=== PATIENT | male | born 1980 | race Caucasian/White ===

== ENCOUNTER 2022-04-13 13:29 | Outpatient (CLI) | payer BC, SELFPAY ==
[2022-04-13 22:01] LABS: Albumin* 4.9 g/dL (3.3-5.0); Sodium* 137 mmol/L (135-149)
[2022-04-13 22:02] LABS: Potassium* 4.5 mmol/L (3.6-5.1)
[2022-04-13 22:04] LABS: Cholesterol* 206 mg/dL (90-199); Estimated Glomerular Filt Rate 96 ml/min
[2022-04-13 22:05] LABS: Alanine Aminotransferase* 37 U/L (4-50); Alkaline Phosphatase* 71 U/L (40-150); Aspartate Amino Transferase* 35 U/L (12-35); Bilirubin Total* 0.6 mg/dL (0.1-1.5); Blood Urea Nitrogen* 15 mg/dL (5-24); Calcium* 9.9 mg/dL (8.4-10.6); Carbon Dioxide* 28 mmol/L (20-32); Glucose* 94 mg/dL (60-115); HDL Cholesterol* 53 mg/dL (>=40); LDL Cholesterol Calculated 115 mg/dL (<100); Triglycerides* 192 mg/dL (40-149)
[2022-04-13 22:10] LABS: C Reactive Protein* < 0.5 mg/dL (0.5-1.0)
[2022-04-13 22:18] LABS: Chloride* 100 mmol/L (96-114)
[2022-04-15 18:15] LABS: Rheumatoid Factor <10 IU/mL (0-14)
[2022-04-15 21:57] LABS: Anti-Nuclear Ab(ANA)IgG ELISA None Detected (None Detected)
[2022-04-16 08:54] LABS: HLA-B27 Negative (Negative)
== END 2022-04-13 13:30 | disposition home or self-care (01) ==
PROVIDERS: PCP Family Medicine; Visit Provider Family Medicine
DX: Z00.00 Encounter for general adult medical examination without abnormal findings (principal); M35.3 Polymyalgia rheumatica; R21 Rash and other nonspecific skin eruption; Z13.1 Encounter for screening for diabetes mellitus; Z13.6 Encounter for screening for cardiovascular disorders
CPT/HCPCS: 80053; 80061; 86039; 86140; 86200; 86431; 86812

== ENCOUNTER 2023-04-13 07:57 | Outpatient (CLI) | payer BC, SELFPAY | END 2023-04-13 07:58 | disposition home or self-care (01) | PROVIDERS: PCP Family Medicine; Visit Provider Physician Assistant Medical | DX: Z00.00 Encounter for general adult medical examination without abnormal findings (principal); R41.82 Altered mental status, unspecified; Z13.6 Encounter for screening for cardiovascular disorders; Z13.29 Encounter for screening for other suspected endocrine disorder; Z13.1 Encounter for screening for diabetes mellitus | CPT/HCPCS: 80053; 80061; 84443 ==

== ENCOUNTER 2024-04-17 14:29 | Outpatient (CLI) | payer BC, SELFPAY | END 2024-04-17 14:30 | disposition home or self-care (01) | PROVIDERS: PCP Family Medicine; Visit Provider Family Medicine | DX: Z00.00 Encounter for general adult medical examination without abnormal findings (principal); E78.5 Hyperlipidemia, unspecified; Z13.1 Encounter for screening for diabetes mellitus; Z13.6 Encounter for screening for cardiovascular disorders | CPT/HCPCS: 80053; 80061 ==

== ENCOUNTER 2025-05-15 14:42 | Outpatient (CLI) | payer BC, SELFPAY | END 2025-05-15 14:43 | disposition home or self-care (01) | LOC: NFLDREF 05-22 06:38 | PROVIDERS: PCP Family Medicine; Referring Provider Family Medicine; Visit Provider Family Medicine | DX: Z00.00 Encounter for general adult medical examination without abnormal findings (principal) | CPT/HCPCS: 80053; 80061 ==

== ENCOUNTER 2025-06-17 14:01 | Emergency (ER) | payer BC, SELFPAY ==
--- OUTSIDE RECORDS SUMMARY | 2025-06-17 14:04 | XMS_ITS | Clinical Summary ---
Author Organization [employer] [facility] Address [address] [place] [id number] Care Team Providers Care Line Assembler Name Role Phone Pcp, No Primary Care Provider Unavailabl e Allergies No known active allergies Medications No known medications Active Problems No known active problems Social History Tobacco UseTypesPacks/DayYears UsedDateSmoking Tobacco: Never AssessedSex and Gender InformationValueDate RecordedSex Assigned at BirthNot on fileLegal Sex Male08/18/2013 2:56 PM CSTGender IdentityNot on fileSexual OrientationNot on file Last Filed Vital Signs Vital SignReadingTime TakenCommentsBlood [id number] 4:25 PM CDT [id number] 4:25 PM CDTTemperature--Respiratory Rate--Oxygen Saturation-- Inhaled Oxygen Concentration--Weight--Height--Body Mass Index-- Plan of Treatment Health MaintenanceDue DateLast DoneCommentsTetanus jfrtabo6206/27/1990Depression screening for age 12+1991HIV for age 15-6506/27/1994BMI (ht and wt on same day) for age 18+1997Hepatitis C screening for age 18-7906/27/1997Hepatitis B series for 19+ (1 of 3 - 19+ 3-dose series)1998HPV series for age 9-45 (1 - 3-dose SCDM series)2006Colonoscopy through age 7506/27/2024Lipids for age 45-OVID-19 vaccine series (2024- season)2025 Influenza Vaccine (#1)2025Pneumococcal series for age 6-49Aged OutNo longer eligible based on patient's age to complete this topic Insurance * Guarantor: Raven Fonseca TypeRelation to PatientDate of BirthPhone Billing AddressPersonal/[address] [place] [address] Care Teams Team MemberRelationshipSpecialtyStart DateEnd Date Hailey Bey - General08/18/13
[2025-06-17 14:34] VITALS: BP 154/83; PULSE 68; RESP 16; TEMP 36.7; O2SAT 98; BMI 33.5
--- NOTE | 2025-06-17 19:47 | ED.BACK ---
HPI - Back Pain/Injury General Date Seen: 06/17/25 Chief Complaint: Back Injury/Pain Stated Complaint: back pain Time Seen by Provider: 06/17/25 19:47 Source: patient, family, RN notes reviewed and old records reviewed Mode of arrival: ambulatory Limitations: no limitations History of Present Illness HPI Narrative: Sayed is a very pleasant 44-year-old gentleman currently working at [employer] otherwise healthy who comes with back pain to the ER. Patient is noted to have been lifting furniture up stairs and felt a sudden pull in his low back somewhat on the right. He notes that he took 400 mg of ibuprofen. This morning when he woke up he was very hard for him to move. He notes some a sensation going down his right posterior lateral thigh but not past the knee. He states he does have also have some pain on the top of his foot. He has no loss of bowel or bladder control he does no fever. Movement definitely increases his discomfort. Related Data Home Medications ?Medication ?Instructions ?Recorded ?Confirmed No Known Home Medications 06/17/25 06/17/25 Allergies Allergy/AdvReac Type Severity Reaction Status Date / Time No Known Drug Allergies Allergy Verified 06/17/25 14:32 Review of Systems Status of ROS: Reports: 6 or more systems reviewed and unremarkable except as noted in History and below PFSH PFSH Surgical History No significant past surgical history Family History Mother Diabetes Father Diabetes Social History Narrative: alcohol ingestion of more than 4 drinks/week (2-6) does not use illicit drugs nonsmoker What is your current living situation?: I presently have a place to live Problems where you live: declined to answer In the past 12 months, utilities in danger of being shut off: no In past 12 months, lack of transportation kept you from medical appts, meetings, work, or getting things needed for daily living: no In the past 12 mos, have been you worried that your food would run out before you had money to buy more?: never true In the past 12 mos, the food you bought just didn't last and you didn't have money to buy more?: never true Smoking Status: Never smoker How often does anyone, including family, friends and others, physically hurt you: never How often does anyone, including family, friends and others, insult or talk down to you: never How often does anyone, including family, friends and others, threaten you with harm: never How often does anyone, including family, friends and others, scream or curse at you: never Exam Narrative: Exam Narrative: Patient is alert and oriented. Nontoxic in appearance. Upon meeting him I apologized profusely for the length of his stay today which was 5 hours. Is no respiratory distress. Does not appear to be in acute state. Palpation of the lumbar spine shows some slight discomfort with the right paraspinous musculature over the lumbar and sacral areas. No buttock pain. No ecchymosis or unusual appearance of his back. Lower extremities with symmetrical sensation as well as strength. DTRs 2+ at the knees. 1+ at the ankles. Const: Vital Signs, click to edit/add: Vital Signs - 24 hr 06/17/25 14:34 Temperature 98.0 F Pulse Rate [Pulse Oximeter] 68 Respiratory Rate 16 Blood Pressure [Ri ght Forearm] 154/83 H Pulse Oximetry 98 Oxygen Delivery Me thod Room Air Documenting provider has reviewed patient's vital signs: yes Course Course ED Course: Differential diagnosis includes but is not limited to musculoskeletal strain, lumbar disc protrusion. At this time patient is stating that he really cannot move around very well. Do order x-ray of the lumbar spine and will give him 2 doses of medications. 8 mg IM morphine and 30 mg of IM Toradol. Reevaluation(s) Reevaluation #1: X-ray by my read does not show any acute findings. Patient is feeling better. He was able to get up for me. Feels that the morphine is working. Still alert and oriented. He is asking for 3 days off of work right now. I did tell and I will give him the next 48 hours off since the injury happened yesterday. Vital Signs Vital signs: Initial Vital Signs Temperature 98.0 F 06/17/25 14:34 Temperature Source Temporal Artery Scan 06/17/25 14:34 Pulse Rate 68 06/17/25 14:34 Respiratory Rate 16 06/17/25 14:34 Blood Pressure 154/83 H 06/17/25 14:34 Blood Pressure Mean 106 H 06/17/25 14:34 Pulse Oximetry 98 06/17/25 14:34 Oxygen Delivery Method Room Air 06/17/25 14:34 Vital Signs Temperature 98.0 F 06/17/25 14:34 Pulse Rate 68 06/17/25 14:34 Respiratory Rate 16 06/17/25 14:34 Blood Pressure 154/83 H 06/17/25 14:34 Pulse Oximetry 98 06/17/25 14:34 Oxygen Delivery Method Room Air 06/17/25 14:34 Temperature 98.0 F 06/17/25 14:34 Pulse Rate 68 06/17/25 14:34 Respiratory Rate 16 06/17/25 14:34 Blood Pressure 154/83 H 06/17/25 14:34 Pulse Oximetry 98 06/17/25 14:34 Oxygen Delivery Method Room Air 06/17/25 14:34 Medications Administered Medications: Discontinued Medications Generic Name Dose Route Start Last Admin Trade Name Freq PRN Reason Stop Dose Admin Ketorolac Tromethamine 30 mg 06/17/25 19:54 06/17/25 20:05 Ketorolac 30 Mg/Ml Inj IM 06/17/25 19:55 30 mg ONCE ONE Administration Morphine Sulfate 8 mg 06/17/25 19:54 06/17/25 20:06 Morphine 4 Mg/Ml Inj IM 06/17/25 19:55 8 mg ONCE ONE Administration MDM - Back Pain/Injury MDM Narrative Medical decision making narrative: 1. Lumbar strain-patient notes the exact moment that the discomfort occurred while lifting something heavy. X-ray is reassuring without evidence compression fracture or other abnormality. Suggest icing, light activity and avoiding prolonged immobilization. 2. Low back pain-patient improved after Toradol 30 mg IM and morphine 8 mg IM. Will continue alternating ibuprofen and Tylenol at home 600 mg and 1 g respectively every 4 hours. Will also give him Flexeril 10 mg p.o. t.i.d. p.r.n. muscle spasm. Did warn this gentleman of the sedating fax of Flexeril and that he should avoid alcohol (he does not drink) as well as driving and at work. Patient also be started on prednisone 20 mg p.o. b.i.d. x5 days as an anti-inflammatory. No history of GI bleed. 3. Disposition-home at this time. Work note for 2 days off of work. Follow-up with primary MD if not improving. Return to the ER for worsening symptoms. Medical Records Attestation: I reviewed the patient's medical records. Imaging Data Lumbar spine x-ray: Attestation: I have reviewed the pertinent imaging results. My impression: I do not note any evidence of compression fracture or other abnormality. Radiologist's impression: FINDINGS/IMPRESSION: Straightening of the normal lumbar vertebral bodies. Mild disc degenerative changes. No fractures. Six lumbar-type vertebral bodies with transitional vertebral body. Discharge Plan Discharge Clinical Impression: Low back pain Qualifiers: Chronicity: acute Back pain laterality: midline Sciatica presence: without sciatica Qualified Code(s): M54.50 - Low back pain, unspecified Strain of lumbar region Qualifiers: Encounter type: initial encounter Qualified Code(s): S39.012A - Strain of muscle, fascia and tendon of lower back, initial encounter Patient Disposition: Home, Self-Care Condition: Improved Instructions: Back Pain (ED) Additional Instructions: 1. For pain you may alternate ibuprofen 600 mg and acetaminophen 1 g or 1000 mg every 4 hours. 2. Flexeril is a muscle relaxant that you may use for muscle spasm. This medicine will make you sleepy so please do not take with any other sedating medications. You should also not drive with this medicine. I did put this in the Novasentis machine for you. 3. Prednisone is an anti-inflammatory that we will use for the next few days. I am hoping that with a decreased inflammation you will have better pain relief. 4. I did write a work note so that he will be off on Wednesday and Wednesday. If needs longer than that you will need to see your regular physician in the clinic. 5. Return to the ER for worsening symptoms, loss of bowel or bladder control, worsening pain and as needed. Prescriptions: No Action No Known Home Medications Follow Up/Referrals: Ortega Moran MD [Primary Care Provider, Family Practice] Stand Alone Forms: Reframe It Info Instructions
--- NOTE | 2025-06-17 19:54 | CRLHL7_ITS ---
For Patients: As a result of the Cures Act, medical imaging exams and procedure reports are released immediately into your electronic medical record. You may view this report before your referring provider. If you have questions, please contact your health care provider. INDICATION: Mid lumbar pain while lifting TECHNIQUE: Two-view lumbar spine FINDINGS/IMPRESSION: Straightening of the normal lumbar vertebral bodies. Mild disc degenerative changes. No fractures. Six lumbar-type vertebral bodies with transitional vertebral body. Dictated by Shima Bansal MD @ 06/17/2025 8:38:29 PM (Electronically Signed)
[2025-06-17] MEDS: MORPHINE 4 MG/ML INJ 8 MG IM (20:06)
== END 2025-06-17 21:06 | disposition home or self-care (01) ==
PROVIDERS: Emergency Provider Family Medicine; PCP Family Medicine
DX: S39.012A Strain of muscle, fascia and tendon of lower back, initial encounter (principal); X50.0XXA Overexertion from strenuous movement or load, initial encounter; Y93.E9 Activity, other interior property and clothing maintenance; Y92.008 Other place in unspecified non-institutional (private) residence as the place of occurrence of the external cause
CPT/HCPCS: 72100; 96372; 99284; J1885; J2270